=== PATIENT | female | born 1965 | race Asian ===

== ENCOUNTER 2016-12-20 06:46 | Day surgery (SDC) | payer OTHER ==
[2016-12-20] MEDS ORDERED: LACTATED RINGERS 1,000 ML ONE (06:53)
[2016-12-20] MEDS ORDERED: IV START KIT ONE (06:53)
[2016-12-20] MEDS ORDERED: PROPOFOL 40 ML IV ONE (07:48)
[2016-12-20] MEDS ORDERED: LACTATED RINGERS 1,000 ML IV SCH (08:30)
== END 2016-12-20 09:20 | disposition home or self-care (01) ==
LOC: SDC 06:46
PROVIDERS: ATTEND Surgery
PROC: 0DJD8ZZ Inspection of Lower Intestinal Tract, Via Natural or Artificial Opening Endoscopic (ICD-10-PCS; principal; 2016-12-20)
DX: Z12.11 Encounter for screening for malignant neoplasm of colon (principal); I10 Essential (primary) hypertension; F41.9 Anxiety disorder, unspecified; F32.9 Major depressive disorder, single episode, unspecified
CPT/HCPCS: 45378; J7120